=== PATIENT | female | born 1970 | race Two or more races ===

== ENCOUNTER 2023-05-16 16:18 | Emergency (ER) | payer MEDICARE, SELFPAY ==
[2023-05-16 16:58] VITALS: BP 121/75; PULSE 108; RESP 16; TEMP 36.1; O2SAT 99; BMI 38.6
--- NOTE | 2023-05-16 16:58 | ED.EAR ---
HPI - Ear Problem General Chief complaint: Ear Problems Stated complaint: ear pain Time Seen by Provider: 05/16/23 17:03 Source: patient, RN notes reviewed and old records reviewed Mode of arrival: ambulatory History of Present Illness HPI Narrative: 52 year old female with no sig PMHx presenting to the ED complaining of left ear pain and reduced hearing x5 days. Admits to sticking Q-tip into ear without relief. Also reports subjective fever. Denies headache, drainage from ear, sore throat, nausea/vomiting, fever MD Complaint: ear pain and decreased hearing Related Data Previous Rx's Medication Instructions Recorded ciprofloxacin 0.3 %-dexamethasone 4 drp otic (ear) left Q12H 7 days 05/16/23 0.1 % ear drops,suspension #7.5 mL Allergies Allergy/AdvReac Type Severity Reaction Status Date / Time No Known Allergies Allergy Verified 05/16/23 16:58 Review of Systems Review of Systems: Constitutional: No Fever, No Chills ENT/Mouth: +Ear Pain, No Nasal Congestion, No Hoarseness, No sore throat, No Rhinorrhea, No Swallowing Difficulty Cardiovascular: No Chest Pain, No SOB Respiratory: No Cough, No Wheezing Gastrointestinal: No Nausea, No Vomiting, No Diarrhea, No Constipation, No Abdominal pain Skin: No Skin Lesions, No rash Neuro: No Weakness Yes all other systems are reviewed and are negative Constitutional: Constitutional: Reports as per [facility] Past Medical History Attestation statement: The following information was validated with the patient. Source: old records reviewed Physical Exam Vital Signs: Vital Signs: Last Vital Signs Temp 97 F 05/16/23 16:58 Pulse 108 H 05/16/23 16:58 Resp 16 05/16/23 16:58 BP 121/75 05/16/23 16:58 Pulse Ox 99 05/16/23 16:58 O2 Del Method Room Air 05/16/23 16:58 BMI result Body Mass Index 38.6 Const: General: cooperative, healthy appearing and no acute distress Orientation/consciousness: patient oriented x3 Limitations: no limitations HEENT: Head: Yes normal to inspection and Yes atraumatic Ears: hearing grossly normal bilaterally, mastoids normal, Abnormal EAC present otic discharge purulent on the left and occluded by discharge on the left, external ear abnormal auricular tenderness on the left and unable to visualize TM on the left General nose exam: Normal external nose present Face and sinus: Yes normal facial exam Mouth: Normal oral and palatal mucosa present and no drooling Throat: Yes posterior oropharynx normal, Yes tonsils normal, Yes uvula midline, No uvula laterally displaced and No uvular edema Eyes: General: appearance normal, both eyes and all related structures EOM: EOMs intact bilaterally Neck: Neck: Yes normal visual inspection, Yes no lymphadenopathy and Yes no meningeal signs Resp: Effort & Inspection: normal respiratory effort, no respiratory distress and no stridor Cardio: Rate: regular rate Skin: Rashes: no rashes Wounds: no wounds Neuro: General: patient oriented x3, tone normal and no meningeal signs Cranial nerves: Yes CN's II-XII intact bilaterally Gait exam (Neuro): Normal gait present Extrem: General: Yes normal to inspection Medical Decision Making Medical Decision Making MDM Narrative: 52 year old female with no sig PMHx presenting to the ED complaining of left ear pain and reduced hearing x5 days. On exam mildly tachycardic, NAD, nontoxic appearing, live external auditory canal with discharge and auricle ttp. Mastoids and oropharynx WNL. concern for otitis externa. Low suspicion for otitis media, malignant otitis externa, mastoiditis Plan: Topical antibiotic Please refer to course for remaining clinical decision making, interpretation of labs/imaging results, and discussions with consultants and/or family members. Results discussed with patient including worrisome signs and symptoms and strict return precautions, and when to return to the emergency department. They verbalized understanding and feel safe for discharge at this time. Differential Diagnosis Differential Diagnoses: The differential diagnosis associated with the presentation includes As above External Record Review External record reviewed: Inpatient record, Office record, Outpatient record, Prior outpatient labs, Prior outpatient radiology, Primary care record and Outside ED record Tests considered The following testing was considered but not selected: As above Prescription Management I considered prescription management with: Pain Medication Discharge Plan Discharge Clinical Impression: Otitis externa Patient Disposition: Home, Self-Care Instructions: Otitis Externa (DC) Additional Instructions: Ciprodex ear drops are antibiotic drops with steroid, please use as prescribed. Please have close follow-up with your doctor If symptoms persist worsen return to the emergency department Prescriptions: New ciprofloxacin-dexamethasone 0.3-0.1 % drops,suspension 4 drp otic (ear) left Q12H 7 Days Qty: 7.5 0RF Referrals: Physician,None [Primary Care Provider] - 1 week
== END 2023-05-16 17:18 | disposition home or self-care (01) ==
LOC: HO.ED 17:18
PROVIDERS: Emergency Provider Internal Medicine
DX: H60.92 Unspecified otitis externa, left ear (principal); H92.02 Otalgia, left ear; R50.9 Fever, unspecified; H91.92 Unspecified hearing loss, left ear
CPT/HCPCS: 99282; 99283

== ENCOUNTER 2023-06-11 09:29 | Emergency (ER) | payer MEDICARE, MEDICAID, SELFPAY ==
[2023-06-11 09:40] VITALS: BP 157/98; PULSE 94; RESP 18; TEMP 36.6; O2SAT 97; BMI 41.7
--- NOTE | 2023-06-11 11:35 | ED_ITS ---
HPI - General Adult General Chief complaint: Ear Problems Stated complaint: ear pain Time Seen by Provider: 06/11/23 10:41 History of Present Illness HPI narrative: Patient complains of left ear pain which is been going on for several week, she was here May 16 and was treated with Ciprodex ear drops, and she said mild improvement but it did not eliminate the problem and her ear continues to hurt with decreased hearing in the ear Denies any fever denies any rash denies any headache no confusion no loss of balance no ringing in her ear Related Data Previous Rx's Medication Instructions Recorded ciprofloxacin 0.3 %-dexamethasone 4 drp otic (ear) left Q12H 7 days 05/16/23 0.1 % ear drops,suspension #7.5 mL amoxicillin 875 mg-potassium 1 tab PO BID 10 days #20 tabs 06/11/23 clavulanate 125 mg tablet Allergies Allergy/AdvReac Type Severity Reaction Status Date / Time No Known Allergies Allergy Verified 05/16/23 16:58 [facility] Past Medical History Source: nursing notes reviewed Social History Social History Advance Directives: No Advance Directives Information Provided: Yes Physical Exam ED Vital Signs: Vital Signs - 24 hr 06/11/23 09:40 Temperature 97.8 F Pulse Rate 94 Respiratory Rate 18 Blood Pressure 157/98 H Pulse Oximetry 97 Oxygen Delivery Method Room Air BMI result Body Mass Index 41.7 General appearance comfortable no distress The right ear is normal with a little bit of wax but easily visualized tympanic membrane, there is no tenderness to now tympanic membrane is normal color in appearance The left ear there was some debris possibly wax although with a wider caller that was very soft and was easy to remove most of it with a speculum, there was no tenderness to the tragus no pain with movement of the ear no narrowing of the canal Mastoid area was not red or tender After irrigation the tympanic membrane was easily visualized with diminished light reflex as well as redness of the tympanic membrane, no perforation visualized Pharynx is clear Sinuses are nontender Neck is supple Respiratory no distress Skin no rash Course Course Course Narrative: At this time otitis externa very unlikely as there is no tenderness with movement of the ear and the canal was open and patent, after irrigating some debris from the ear canal tympanic membrane was easily visualized and it was red and appeared infected so patient is prescribed antibiotic and started on Augmentin After irrigating debris from the left ear the patient was easily able to hear whispered words with the left ear Discharge Plan Discharge Clinical Impression: Otitis media Patient Disposition: Home, Self-Care Additional Instructions: The ear drum was red and may be infected so I am starting antibiotic Augmentin Return any time for fever, worse pain, any worse condition or any concerns If not improved with antibiotic you may need to follow-up with the specialist, you may need referral from a primary care doctor Your welcome to return to the ER any time if you have no primary doctor and the specialist 1 see you if things are not improving or if they are getting worse Prescriptions: New amoxicillin-pot clavulanate 875-125 mg tablet 1 tab PO BID 10 Days Qty: 20 0RF No Action ciprofloxacin-dexamethasone 0.3-0.1 % drops,suspension 4 drp otic (ear) left Q12H 7 Days Qty: 7.5 0RF Referrals: Iam Ramirez [Physician] -
[2023-06-11] MEDS: Amoxicillin/Potassium Clav 875 MG TABLET PO (11:53)
[2023-06-11 11:55] VITALS: RESP 16
--- NOTE | 2023-06-11 11:55 | PC.NURSE ---
pt medicated per MAR.
== END 2023-06-11 11:55 | disposition home or self-care (01) ==
PROVIDERS: Emergency Provider Emergency Medicine Emergency Medical Services
DX: H66.92 Otitis media, unspecified, left ear (principal); H92.02 Otalgia, left ear
CPT/HCPCS: 99282; 99283

== ENCOUNTER 2023-08-30 16:51 | Emergency (ER) | payer MEDICARE, MEDICAID, SELFPAY ==
--- NOTE | ~2023-08-30 | XR_ITS ---
EXAMINATION: XR LUMBOSACRAL SPINE CLINICAL INFORMATION: Low back pain. COMPARISON: None available. TECHNIQUE: Three views of the lumbosacral spine. FINDINGS: There are 5 nonrib bearing lumbar vertebrae. Spinal alignment is anatomic in the sagittal projection. Vertebral body heights are preserved. There is minimal narrowing of the L5-S1 intervertebral disc space. Intervertebral disc space heights are otherwise normal. There is mild facet arthropathy at L4-L5 and L5-S1. No acute lumbar spine fracture. Sacroiliac joints and visualized hip joints appear normal. There is a large volume of stool throughout the colon. There is a partially visualized spinal cord stimulator. XR/XR lumbar spine 2-3V IMPRESSION: No acute osseous lumbar spine abnormality. 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
[2023-08-30 17:05] VITALS: BP 154/84; PULSE 89; RESP 16; TEMP 37; O2SAT 98; BMI 40.1
--- NOTE | 2023-08-30 17:20 | ED.GENADULT ---
HPI - General Adult General Chief complaint: Back Pain/Injury Stated complaint: back pain History of Present Illness HPI narrative: Left without completion of treatment Related Data Previous Rx's Medication Instructions Recorded ciprofloxacin 0.3 %-dexamethasone 4 drp otic (ear) left Q12H 7 days 05/16/23 0.1 % ear drops,suspension #7.5 mL amoxicillin 875 mg-potassium 1 tab PO BID 10 days #20 tabs 06/11/23 clavulanate 125 mg tablet Allergies Allergy/AdvReac Type Severity Reaction Status Date / Time No Known Allergies Allergy Verified 05/16/23 16:58 [facility] Social History Social History Advance Directives: No Advance Directives Information Provided: No Physical Exam ED Vital Signs: Vital Signs - 24 hr 08/30/23 17:05 Temperature 98.6 F Pulse Rate 89 Respiratory Rate 16 Blood Pressure 154/84 H Pulse Oximetry 98 Oxygen Delivery Method Room Air BMI result Body Mass Index 40.1 Course Course Course Narrative: RME: 53 yold female preesnts to the ED low back pain for the past 4 days. Patient had back surgery last year. Patient denies any new trauma. Patient denies any urinary/bowel incontinence. Patient states slight nausea. Patient denies any abdominal pain, vaginal bleeding, vaginal discharge, dysuria, hematuria. Lumbar x-ray UA ordered. Medical Decision Making Lab Data Labs: Lab Results 08/30/23 Range/Units 18:05 Urine Color Yellow Urine Appearance Clear Urine pH 6.0 (5.0-9.0) Ur Specific Oto 1.010 (1.005-1.025) Urine Protein Negative (Neg-Trace) mg/dL Urine Glucose (UA) Negative (Negative) mg/dL Urine Ketones Negative (Negative) mg/dL Urine Blood Negative (Negative) Urine Nitrite Negative (Negative) Ur Leukocyte Esterase Trace H (Negative) Urine RBC 0-2 (0-2) /HPF Urine WBC 0-5 (0-5) /HPF Ur Squamous Epith Cells 0-2 (0-2) /HPF Urine Bacteria None Seen (None Seen) Hyaline Casts 0-2 (0-2) /LPF Urine Test NEGATIVE (NEGATIVE) Discharge Plan Discharge Clinical Impression: Diagnosis unknown Patient Disposition: Left W/O Completing Treatment Prescriptions: No Action amoxicillin-pot clavulanate 875-125 mg tablet 1 tab PO BID 10 Days Qty: 20 0RF ciprofloxacin-dexamethasone 0.3-0.1 % drops,suspension 4 drp otic (ear) left Q12H 7 Days Qty: 7.5 0RF Discharge Date/Time: 08/31/23 00:04
[2023-08-30 18:36] LABS: Appearance Urine Clear; Color Urine Yellow; Glucose Urine UA Negative (Negative); Leukocyte Esterase Urine Trace (Negative); Nitrite Urine Negative (Negative); UMIC TRIGGER UACC YES; Urine Blood Negative (Negative); Urine Ketones Negative (Negative); Urine Protein Negative (Neg-Trace)
[2023-08-30 18:54] LABS: Bacteria Urine None Seen (None Seen); Hyaline Casts Urine 0-2 /LPF (0-2); RBC Urine 0-2 /HPF (0-2); Squamous Epithelial Cell Urine 0-2 /HPF (0-2); WBC Urine 0-5 /HPF (0-5)
[2023-08-30 19:33] LABS: UPreg QC Valid YES; Urine Pregnancy NEGATIVE (NEGATIVE)
== END 2023-08-31 00:04 | disposition left against medical advice (07) ==
LOC: HO.ED 08-31 00:03
PROVIDERS: Physician Assistant; Emergency Provider Emergency Medicine
DX: M54.50 Low back pain, unspecified (principal)
CPT/HCPCS: 72100; 81001; 81025; 99282; 99283